=== PATIENT | female | born 2000 | race American Indian/Alaskan Native ===

== ENCOUNTER 2022-03-27 13:18 | Outpatient (CLI) | payer MEDICAID ==
[2022-03-27 15:09] LABS: Bacteria,Urine 2+ /HPF (Negative); Bilirubin,Urine NEG (Negative); Blood,Urine MOD (Negative); Color,Urine Amber (Yellow); Granular Casts,Urine 6 /LPF; Mucus,Urine 3+ /HPF
[2022-03-27] MEDS: ACETAMINOPHEN 500 MG TAB PO SCH (15:11)
[2022-03-27 17:23] VITALS: BP 115/54
[2022-03-27] MEDS: LIDOCAINE-MPF (1%) 10 MG/1 ML VIAL 5 ML INFILTRATI ONE (18:03)
[2022-03-27] MEDS: LACTATED RINGERS 500 ML IV ONE (18:05)
--- NOTE | 2022-03-27 18:19 | Ultrasound Report ---
Limited OB Ultrasound Biophysical profile HISTORY: walk in well being. TECHNIQUE: Grayscale and color imaging performed. COMPARISON: None FINDINGS: Single viable intrauterine gestation with cephalic presentation and anterior placenta. RAIZA is 10.5 cm . Heart rate is 140 bpm. Overall EGA is 31 weeks and 1 day by ultrasound compared to 31 weeks 0 days clinically. Estimated delivery date is 05/28/2022. On biophysical profile, the fetus received a score of 2 out of 2 for breathing, movement, posture/ton e, and RAIZA. Total score was 8 out of 8. IMPRESSION: 1. Single viable intrauterine gestation as above. 2. Normal biophysical profile. Signer Name: Rio Briceno MD Signed: 03/27/2022 6:14 PM Workstation Name: [id number]
[2022-03-27] MEDS: LACTATED RINGERS 1,000 ML ONE (18:50)
[2022-03-27] MEDS ORDERED: LACTATED RINGERS 1000 ML IV SOLN IV SCH (19:00)
== END 2022-03-27 20:00 | disposition home or self-care (01) ==
LOC: TRG 13:18 → APU 13:20 → TRG 20:00
PROVIDERS: ATTEND Obstetrics & Gynecology
DX: O47.03 False labor before 37 completed weeks of gestation, third trimester (principal); Z3A.31 31 weeks gestation of pregnancy; M54.50 Low back pain, unspecified
CPT/HCPCS: 76805; 76819; 81001; 87086; J0696; J3490; J7120

== ENCOUNTER 2022-05-17 10:02 | Inpatient (IN) | payer MEDICAID ==
[2022-05-17] MEDS ORDERED: METHYLERGONOVINE MALEATE 0.2 MG/ML VIAL IM PRN (12:15)
[2022-05-17] MEDS ORDERED: LOPERAMIDE 2 MG CAP PO PRN (12:15)
[2022-05-17] MEDS ORDERED: ONDANSETRON 4 MG/2 ML INJ IV PRN (12:15)
[2022-05-17] MEDS ORDERED: BUTORPHANOL 2 MG/1 ML INJ IV PRN (12:15)
[2022-05-17] MEDS ORDERED: TERBUTALINE 1 MG/1 ML INJ SUB-Q PRN (12:15)
[2022-05-17] MEDS ORDERED: OXYTOCIN 10 UNIT/1 ML INJ IM PRN (12:15)
[2022-05-17] MEDS ORDERED: CARBOPROST TROMETHAMINE 250 MCG/1 ML INJ IM PRN (12:15)
[2022-05-17] MEDS ORDERED: miSOPROStol 200 MCG TAB PR PRN (12:15)
[2022-05-17] MEDS ORDERED: LACTATED RINGERS 1,000 ML IV SCH (12:15)
[2022-05-17] MEDS ORDERED: MINERAL OIL 30 ML ORAL LIQD PO PRN (12:15)
[2022-05-17] MEDS ORDERED: ePHEDrine SULFATE 50 MG/1 ML INJ IV PRN ×2 (12:15→13:34)
--- NOTE | 2022-05-17 12:23 | History and Physical Report ---
History of Present Illness Date of examination: 05/17/22 Date of admission: 05/17/2022 Chief complaint: Intense Labor Pains History of present illness: Late transfer into care at [facility] APPLICATION ENGINEER from [facility]. B Negative blood type; did not receive Rhogam this . Past History Past Medical History: GERD, other (IBS and stomach ulcers) Past Surgical History: no surgical history Family/Genetic History: diabetes Social history: no significant social history, single - Obstetrical History Expected Date of Delivery: 05/28/22 Actual Gestation: 38 Week(s) 3 Day(s) : 1 Medications and Allergies Allergies Allergy/AdvReac Type Severity Reaction Status Date / Time sulfamethoxazole Allergy Severe Vomiting Verified 05/17/22 12:18 [From Bactrim] trimethoprim [From Bactrim] Allergy Severe Vomiting Verified 05/17/22 12:18 Active Meds: Active Medications Carboprost Tromethamine (Carboprost Tromethamine 250 Mcg/1 Ml Inj) 250 mcg IM ONCE PRN PRN Reason: Uterine Bleeding Ephedrine Sulfate (Ephedrine Sulfate 50 Mg/1 Ml Inj) 10 mg IV Q2M PRN PRN Reason: Hypotension Oxytocin/Sodium Chloride (Pitocin/Ns 30 Unit/500ml) 30 units in 500 mls @ 2 mls/hr IV TITR BERTO; Protocol Lactated Ringer's (Lactated Ringers) 1,000 mls @ 125 mls/hr IV DIRECT BERTO Oxytocin/Sodium Chloride (Pitocin/Ns 30 Unit/500ml) 30 units in 500 mls @ 40 mls/hr IV TITR BERTO; Protocol Lidocaine (Lidocaine (2%) 20 Mg/1 Ml Vial 20 Ml Mdv) 20 ml INFILTRATI ONCE ONE Stop: 05/17/22 12:16 Loperamide HCl (Loperamide 2 Mg Cap) 2 mg PO ONCE PRN PRN Reason: give with Hemabate Mineral Oil (Mineral Oil 30 Ml Oral Liqd) 30 ml PO QHS PRN PRN Reason: Constipation Oxytocin (Oxytocin 10 Unit/1 Ml Inj) 10 unit IM ONCE PRN PRN Reason: Uterine Bleeding Terbutaline Sulfate (Terbutaline 1 Mg/1 Ml Inj) 0.25 mg SUB-Q ONCE PRN PRN Reason: Hyperstimulation/Hypertonicity Review of Systems All systems: negative - Vital Signs Vital signs: Vital Signs Pulse BP 85 122/75 05/17/22 10:23 05/17/22 10:23 Temp Pulse Resp BP Pulse Ox 86 122/75 97 05/17/22 12:09 05/17/22 10:23 05/17/22 12:09 - Physical Exam Breasts: Positive: normal Cardiovascular: Regular rate Lungs: Positive: Clear to auscultation, Normal air movement Abdomen: Positive: normal appearance, soft, normal bowel sounds Genitourinary (Female): Positive: normal external genitalia, normal perenium Cervix: Positive: other (moderate amount of bloody show) Uterus: Positive: enlarged Anus/Rectum: Positive: normal perianal skin - Obstetrical FHR: category 1 Uterine Contraction Monitor Mode: External Cervical Dilatation: 5 Cervical Effacement Percentage: 90 station: 0 Uterine Contraction Pattern: Regular Uterine Contraction Intensity: Moderate Results All other labs normal. Assessment and Plan A: IUP @ 38 3/7 Weeks Category I Tracing Active Labor RH Negative GBS Negative P: Admit to L&D Per Routine AROM Pitocin Augmentation
[2022-05-17] MEDS ORDERED: OXYTOCIN DRIP 30 UNITS/500 ML BAG IV SCH ×2 (13:00)
[2022-05-17] MEDS ORDERED: LIDOCAINE (2%) 20 MG/1 ML VIAL 20 ML MDV INFILTRATI ONE (13:00)
[2022-05-17] MEDS ORDERED: fentaNYL-BUPIV 2 MCG/ML-0.125% 200 MCG/100 ML BAG EPIDURAL SCH (13:34)
[2022-05-17] MEDS ORDERED: NALOXONE 0.4 MG/1 ML INJ IV PRN (13:34)
[2022-05-17] MEDS ORDERED: BUPIVACAINE/PF (0.25%) 2.5 MG/ML 10 ML VIAL INFILTRATI ONE (13:38)
[2022-05-17 13:48] LABS: Hematocrit 40.3 % (30.3-42.9); Mean Corpuscular HGB Conc 32 % (30-34); Mean Corpuscular Volume 88 fl (79-97); Platelet Count 203 K/mm3 (140-440); Red Blood Count 4.58 M/mm3 (3.65-5.03); Red Cell Distribution Width 13.2 % (13.2-15.2)
--- NOTE | 2022-05-17 14:06 | Anesthesia Consultation ---
Anesthesia Consult and Med Hx Date of service: 05/17/22 - Airway Anesthetic Teeth Evaluation: Good ROM Head & Neck: Adequate Mental/Hyoid Distance: Adequate Mallampati Class: Class II Intubation Access Assessment: Probably Good - Pulmonary Exam CTA: Yes - Cardiac Exam Cardiac Exam: RRR - Pre-Operative Health Status ASA Pre-Surgery Classification: ASA2 Proposed Anesthetic Plan: Epidural - Pulmonary Hx Smoking: No Hx Asthma: No Hx Respiratory Symptoms: No SOB: No COPD: No Home Oxygen Therapy: No Hx Pneumonia: No Hx Sleep Apnea: No - Cardiovascular System Hx Hypertension: No Hx Coronary Artery Disease: No Hx Heart Attack/AMI: No Hx Angina: No Hx Percutaneous Transluminal Coronary Angioplasty (PTCA): No Hx Cardia Arrhythmia: No Hx Pacemaker: No Hx Internal Defibrillator: No Hx Valvular Heart Disease: No Hx Heart Murmur: No Hx Peripheral Vascular Disease: No - Central Nervous System Hx Neuromuscular Disorder: No Hx Seizures: No CVA: No Hx Back Pain: No Hx Psychiatric Problems: No - Gastrointestinal Hx Ulcer: No Hx Gastroesophageal Reflux Disease: No - Endocrine Hx Renal Disease: No Hx End Stage Renal Disease: No Hx Cirrhosis: No Hx Liver Disease: No Hx Insulin Dependent Diabetes: No Hx Non-Insulin Dependent Diabetes: No Hx Thyroid Disease: No Hx Hypothyroidism: No Hx Hyperthyroidism: No - Hematic Hx Anemia: No Hx Sickle Cell Disease: No - Other Systems Hx Alcohol Use: No Hx Substance Use: No Hx Cancer: No Hx Obesity: No
--- NOTE | 2022-05-17 14:06 | Anesthesia Day of Surgery ---
Anesthesia Day of Surgery - Day of Surgery Patient Examined: Yes Patient H&P Reviewed: Yes Patient is NPO: Yes Beta Blockers: No Cardiac Clearance: No Pulmonary Clearance: No Fernando's Test: N/A
--- NOTE | 2022-05-17 14:07 | Progress Note ---
Labor Epidural - Labor Epidural Start Time: 13:46 Stop Time: 13:54 Performed by:: NHUNG MAST Procedure: Epidural Requested for Labor Pain. H&P and PT Chart reviewed and consent obtained. Time out performed and the procedure was explained, all questions answered. Patient was placed in a sitting position with monitors applied. The PTs back was prepped and draped in usual sterile fashion. The Skin was localized with 3 mL of 1% lidocaine at L3-L4. A 17-gauge Touhy epidural needle was advanced to RUSSELL with saline at 7 cm and no blood/CSF was noted via epidural needle. Epidural catheter was advanced to 12 cm. There was negative aspiration for blood and CSF in the catheter and negative response to a test dose of 3 ml 1.5% lidocaine w/ Epi and a sterile dressing was applied Patient tolerated the procedure well and there were no immediate complications noted.
[2022-05-17] MEDS ORDERED: diphenhydrAMINE 25 MG CAP PO PRN (16:19)
[2022-05-17] MEDS ORDERED: ACETAMINOPHEN 325 MG TAB PO PRN (16:19)
[2022-05-17] MEDS ORDERED: MAGNESIUM HYDROXIDE (MOM) ORAL LIQD UDC PO PRN (16:19)
[2022-05-17] MEDS ORDERED: LANOLIN/ZINC/DIMETHICONE (LANSINOH) 7 GM TP PRN (16:19)
[2022-05-17] MEDS ORDERED: PROMETHAZINE 25 MG RECT SUPP PR PRN (16:19)
[2022-05-17] MEDS ORDERED: PROMETHAZINE 25 MG TAB PO PRN (16:19)
[2022-05-17] MEDS ORDERED: WITCH HAZEL/ GLYCERIN PAD TP PRN (16:19)
--- NOTE | 2022-05-17 16:38 | Procedure Note ---
OB Delivery Note - Delivery Date of Delivery: 05/17/22 (1548) Surgeon: ROMEL HARRINGTON Estimated blood loss: 200cc - Vaginal Delivery presentation: vertex Delivery position: OA Intrapartum events: none Delivery induction: none Delivery augmentation: rupture of membranes (AROM of a moderate amount of clear fluid at 1237), pitocin Delivery monitor: external FHT, external uterine Route of delivery: Delivery placenta: spontaneous Delivery cord: 3 umbilical vessels Delivery laceration: 1st degree Delivery repair: vicryl Anesthesia: epidural Delivery comments: of a live 6'3 female infant under bilateral labial lacerations under epidural anesthesia with Apgars of 8 and 9 at 1548 on 05/17/2022. Infant directly to maternal abd/chest; skin to skin contact. 1st degree bilateral labial lacerations repaired with 2-0 Vicryl on a SH. Spontaneous delivery of placenta complete and intact with Díaz side presenting at 1550. Fundus is firm and midline located 5 below the U. Lochia is scant. Delayed cord clamping and cutting; Cord cut by Father of the Baby. Cord blood collected. - Infant A at 1 minute: 8 at 5 minutes: 9 Infant Gender: Female (6'3)
[2022-05-17] MEDS ORDERED: IBUPROFEN 800 MG TAB PO SCH (17:00)
[2022-05-17] MEDS: HYDROcodone/ACETAMINOPHEN 5-325 MG TAB PO PRN (19:21)
--- NOTE | 2022-05-18 00:40 | Post Anesthesia Evaluation ---
- Post Anesthesia Evaluation Patient Participated: Yes Airway Patent: Yes Stable Respiratory Function: Yes Nausea/Vomiting: No Temp > 96.8F: Yes Pain Manageable: Yes Adequeate Hydration: Yes Anesthesia Complications: No Block Receding Appropriately: Yes Patient on Ventilator: No
[2022-05-18] MEDS: HYDROcodone/ACETAMINOPHEN 5-325 MG TAB PO PRN ×2 (10:23→16:40)
[2022-05-18] MEDS ORDERED: ONDANSETRON 4 MG ODT TAB PO PRN (11:00)
[2022-05-18] MEDS ORDERED: ONDANSETRON 4 MG/2 ML INJ IV PRN (11:00)
--- NOTE | 2022-05-18 11:18 | Discharge Summary ---
Providers - Providers Date of Admission: 05/17/22 10:03 Date of discharge: 05/19/22 Attending physician: ANAIS WEAVER [facility] Primary care physician: ANAIS WEAVER Hospitalization Reason for admission: active labor Delivery: Episiotomy: none Laceration: 1st degree Other procedures: none complications: none Discharge diagnosis: IUP at term delivered [place] baby: female (6# 3oz) Condition at discharge: Good Disposition: 01 HOME / SELF CARE / HOMELESS Plan - Provider Discharge Summary Activity: no sex for 6 weeks, no heavy lifting 4 weeks Diet: routine Additional instructions: [] Smoking cessation referral if applicable(refer to patient education folder for contact #) [] Refer to [facility]'s [facility] Booklet Call your doctor immediately for: * Fever > 100.5 * Heavy vaginal bleeding ( >1 pad per hour) * Severe persistent headache * Shortness of breath * Reddened, hot, painful area to leg or breast * Drainage or odor from incision. * Keep incision clean and dry at all times and follow doctor's instructions regarding bathing/showering - Follow up plan Follow up: ANAIS WEAVER MD [Primary Care Provider] - 6 Weeks Forms: [facility] Discharge Summary
[2022-05-18 17:58] LABS: Hematocrit 40.9 % (30.3-42.9); Hemoglobin 13.4 gm/dl (10.1-14.3)
--- NOTE | 2022-05-18 20:32 | Progress Note ---
Assessment and Plan A: PPD#1 1st degree laceration P: CONTINUE ROUTINE PP ORDERS/CARE D/C HOME 24 HRS Subjective - Subjective Date of service: 05/18/22 (1030) Principal diagnosis: Patient reports: appetite normal, voiding normally, pain well controlled, ambulating normally : doing well, nursing well Objective - Vital Signs Latest vital signs: Vital Signs Temp Pulse Resp BP BP Pulse Ox Pulse Ox 05/18/22 16:57 97.9 F 71 20 128/85 99 05/18/22 11:47 98.1 F 64 16 121/54 98 05/18/22 08:35 98 05/18/22 07:40 97.9 F 63 20 109/67 99 05/18/22 05:38 98.3 F 71 18 118/58 96 05/18/22 02:23 12 05/18/22 01:43 98.3 F 65 16 112/64 96 05/17/22 21:00 98.5 F 78 12 113/67 98 05/17/22 20:29 98.6 F Intake and Output 05/18/22 05/18/22 05/18/22 07:59 15:59 23:59 Intake Total 720 480 240 Output Total 1100 Balance -380 480 240 Intake: Oral 480 240 Intake, Free Water 720 Output: Urine 1100 Void 1100 Other: Total, Intake Amount 360 240 Total, Output Amount 300 # Voids Void 1 1 1 - Exam Breasts: Present: Cardiovascular: Present: Regular rate Abdomen: Present: normal appearance Uterus: Present: fundal height at umbilicus Extremities: Present: normal Deep Tendon Reflex Grade: Normal +2
[2022-05-18] MEDS ORDERED: BENZOCAINE/MENTHOL 20/0.5% TOP SPRAY 56 GM TP PRN (20:34)
[2022-05-18 21:45] VITALS: BP 125/78
== END 2022-05-18 21:30 | disposition home or self-care (01) | DRG 775 ==
LOC: TRG 10:02 → APU 10:03 → LD 10:03 → TRG 16:27 → OB 20:18
PROVIDERS: ADMIT Obstetrics & Gynecology; ATTEND Obstetrics & Gynecology
PROC: 10E0XZZ Delivery of Products of Conception, External Approach (ICD-10-PCS; principal; 2022-05-17)
PROC: 10907ZC Drainage of Amniotic Fluid, Therapeutic from Products of Conception, Via Natural or Artificial Opening (ICD-10-PCS; 2022-05-17)
PROC: 0HQ9XZZ Repair Perineum Skin, External Approach (ICD-10-PCS; 2022-05-17)
PROC: 3E0R3BZ Introduction of Anesthetic Agent into Spinal Canal, Percutaneous Approach (ICD-10-PCS; 2022-05-17)
PROC: 00HU33Z Insertion of Infusion Device into Spinal Canal, Percutaneous Approach (ICD-10-PCS; 2022-05-17)
DX: O99.62 Diseases of the digestive system complicating childbirth (principal); Z3A.38 38 weeks gestation of pregnancy; Z37.0 Single live birth; Z20.822 Contact with and (suspected) exposure to COVID-19; K21.9 Gastro-esophageal reflux disease without esophagitis; O70.0 First degree perineal laceration during delivery; Z88.8 Allergy status to other drugs, medicaments and biological substances
CPT/HCPCS: 36415; 85014; 85018; 85027; 86850; 86900; 86901; 96360; 96361; 96365; 96374; 96376; 99211; G0378; J3490; G0463; J0595; J2405; J2590; J7120; U0003